=== PATIENT | male | born 1995 | race Caucasian/White ===

== ENCOUNTER → 2016-05-17 | Outpatient (CLI) | payer BC ==
[2016-05-17 17:33] LABS: BASO % 0.3 %; BASO ABS # 0.02 K/uL (0-0.2); COMPLETE YES; EOS % 1.7 %; HEMATOCRIT 37.6 % (42-52); IG% 0.2 %; LYMPH % 27.9 %; LYMPH ABS # 1.77 K/uL (1.2-3.4); MEAN CELL VOLUME 80.5 fL (80-100); MEAN CORPUSCULAR HEMOGLOBIN 27.2 pg (25-34); MEAN CORPUSCULAR HGB CONC 33.8 g/dl (32-36); MEAN PLATELET VOLUME 9.7 fL (7.4-10.4); MONO % 13.7 %; NEUT % 56.2 %; PLATELET COUNT 255 K/uL (130-400); RED BLOOD COUNT 4.67 M/uL (4.7-6.1); WHITE BLOOD COUNT 6.35 K/uL (4.8-10.8)
[2016-05-17 17:48] LABS: ALT/SGPT 17 U/L (12-78); BLOOD UREA NITROGEN 10 mg/dl (7-18); BUN/CREATININE RATIO 11.4 (10-20); CALCIUM 8.9 mg/dl (8.5-10.1); CARBON DIOXIDE 26 mmol/L (21-32); CHLORIDE 103 mmol/L (98-107); CREATININE 0.83 mg/dl (0.60-1.40); GLUCOSE 87 mg/dl (70-99); POTASSIUM 3.8 mmol/L (3.5-5.1); SODIUM 138 mmol/L (136-145)
[2016-05-17 17:51] LABS: ALB/GLOB RATIO 0.9 (0.9-2); ALKALINE PHOSPHATASE 72 U/L (45-117); AST/SGOT 15 U/L (15-37); C-REACTIVE PROTEIN 1.31 mg/dl (0-0.29)
[2016-05-19 10:20] LABS: QUANTIF TB AG-NIL 0.01 IU/ML; QUANTIFERON NIL 0.05 IU/ML
== END | disposition home or self-care (01) ==
LOC: C.LAB1850 16:05
PROVIDERS: ATTEND Registered Nurse
DX: Z00.00 Encounter for general adult medical examination without abnormal findings (principal); K50.90 Crohn's disease, unspecified, without complications

== ENCOUNTER → 2017-06-27 | Outpatient (CLI) | payer OTHER ==
[2017-06-27 12:18] LABS: BASO % 0.6 %; BASO ABS # 0.03 K/uL (0-0.2); EOS % 2.7 %; EOS ABS # 0.13 K/uL (0-0.5); HEMATOCRIT 41.2 % (42-52); HEMOGLOBIN 14.1 g/dL (14.0-18.0); IG# 0.01 K/uL (0.00-0.02); LYMPH % 32.9 %; MEAN CELL VOLUME 77.9 fL (80-100); MEAN CORPUSCULAR HEMOGLOBIN 26.7 pg (25-34); MEAN CORPUSCULAR HGB CONC 34.2 g/dl (32-36); MEAN PLATELET VOLUME 9.1 fL (7.4-10.4); MONO % 11.9 %; MONO ABS # 0.58 K/uL (0.11-0.59); NEUT % 51.7 %; NEUT ABS # 2.52 K/uL (1.4-6.5); PLATELET COUNT 231 K/uL (130-400); RED CELL DISTRIBUTION WIDTH CV 14.4 % (11.5-14.5); RED CELL DISTRIBUTION WIDTH SD 40.6 fL (36.4-46.3); WHITE BLOOD COUNT 4.87 K/uL (4.8-10.8)
[2017-06-27 12:58] LABS: ALKALINE PHOSPHATASE 76 U/L (45-117); ALT/SGPT 18 U/L (12-78); AST/SGOT 15 U/L (15-37); BLOOD UREA NITROGEN 13 mg/dl (7-18); CALCIUM 9.2 mg/dl (8.5-10.1); CARBON DIOXIDE 28 mmol/L (21-32); CREATININE 0.85 mg/dl (0.60-1.40); GLUCOSE 87 mg/dl (70-99); POTASSIUM 3.6 mmol/L (3.5-5.1); SODIUM 136 mmol/L (136-145); TOTAL PROTEIN 8.4 gm/dl (6.4-8.2)
[2017-06-29 11:55] LABS: QUANTIF MITOGEN-NIL 8.92 IU/ML; QUANTIFERON NEGATIVE (NEGATIVE); QUANTIFERON NIL 0.04 IU/ML
== END | disposition home or self-care (01) ==
LOC: C.LAB1850 10:46
PROVIDERS: ATTEND Registered Nurse
DX: K50.10 Crohn's disease of large intestine without complications (principal); K62.5 Hemorrhage of anus and rectum

== ENCOUNTER 2017-08-03 10:44 | Emergency (ER) | payer OTHER ==
[~2017-08-03] VITALS: Ht 170.2 cm; Wt 70.8 kg
[2017-08-03 10:54] VITALS: TEMP 36.9; O2SAT 94; Ht 170.2 cm; Wt 70.8 kg
[2017-08-03] MEDS ORDERED: SODIUM CHLORIDE 0.9% 1000ML 1,000 ML IV STA (11:23)
[2017-08-03 11:49] LABS: BASO % 0.4 %; BASO ABS # 0.02 K/uL (0-0.2); EOS % 2.3 %; EOS ABS # 0.11 K/uL (0-0.5); IG# 0.01 K/uL (0.00-0.02); LYMPH % 31.8 %; LYMPH ABS # 1.49 K/uL (1.2-3.4); MEAN CELL VOLUME 78.8 fL (80-100); MEAN CORPUSCULAR HEMOGLOBIN 26.9 pg (25-34); MEAN CORPUSCULAR HGB CONC 34.1 g/dl (32-36); MEAN PLATELET VOLUME 9.1 fL (7.4-10.4); MONO ABS # 0.47 K/uL (0.11-0.59); NEUT % 55.3 %; NEUT ABS # 2.59 K/uL (1.4-6.5); PLATELET COUNT 213 K/uL (130-400); RED CELL DISTRIBUTION WIDTH CV 14.3 % (11.5-14.5); WHITE BLOOD COUNT 4.69 K/uL (4.8-10.8)
[2017-08-03 12:05] LABS: ALBUMIN 3.6 gm/dl (3.4-5.0); CALCIUM 9.2 mg/dl (8.5-10.1); CREATININE 0.81 mg/dl (0.60-1.40); POTASSIUM 3.7 mmol/L (3.5-5.1)
[2017-08-03 12:08] LABS: TOTAL PROTEIN 7.8 gm/dl (6.4-8.2)
[2017-08-03 12:15] VITALS: BP 110/78; PULSE 68
--- NOTE | 2017-08-03 12:21 | EMERGENCY ROOM VISIT NOTE ---
History Report prepared by Benja: Ofelia Portillo Under the Supervision of: Dr. Rinku Parekh D.O. First contact with patient: 11:15 Chief Complaint: VOMITING Stated Complaint: VOMITING BLOOD, FATIGUE Nursing Triage Summary: Pt states, "I was supposed to have a colonoscopy today. I took the second prep today at 6 am and vomited what looked to be blood afterwards." Hx of Crohn's. History of Present Illness The patient is a 22 year old male who presents to the Emergency Room with complaints of an episode of vomiting occurring this morning. The patient was scheduled to have a routine colonoscopy today at 11am. He reports after taking the second prep this morning at 6 am he vomited about 30 minutes after what looked like to be blood. He has not vomited again since the first episode. He reports some diarrhea from the prep. He denies any nausea. The patient called his GI physician who referred him to the ED. The patient has a history of Crohn' s. Source of History: patient Onset: this morning Position: other (generalized) Quality: other (vomiting) Timing: other (episode) Associated Symptoms: + vomiting, + diarrhea, No nausea Review of Systems See HPI for pertinent positives & negatives. A total of 10 systems reviewed and were otherwise negative. Past Medical & Surgical Medical Problems: (1) Crohn disease Family History Patient reports no known family medical history. Social History Smoking Status: Never Smoker Smokeless Tobacco Use: No Alcohol Use: other (daily) Housing Status: lives with family Current/Historical Medications Scheduled Infliximab (Remicade), 1 DOSE IV Q8 WEEKS Allergies Coded Allergies: Adhesives (Verified Allergy, Unknown, LISTED AN ADVERSE REACTION IN MEDICAL RECORD, 07/20/17) NO KNOWN DRUG ALLERGIES (Verified Allergy, Unknown, ., 07/20/17) Uncoded Allergies: SEASONAL ALLERGIES (Allergy, Unknown, ., 07/20/17) Physical Exam Vital Signs Date Time Temp Pulse Resp B/P (MAP) Pulse Ox O2 Delivery O2 Flow Rate FiO2 08/03/17 12:15 68 16 110/78 08/03/17 10:54 36.9 92 18 150/80 94 Room Air Physical Exam CONSTITUTIONAL/VITAL SIGNS: Reviewed / noted above. GENERAL: Non-toxic in appearance. INTEGUMENTARY: Warm, dry, and [place]. HEAD: Normocephalic. EYES: without scleral icterus or trauma. ENT/OROPHARYNX: clear and moist. LYMPHADENOPATHY/NECK: Is supple without lymphadenopathy or meningismus. RESPIRATORY: Lungs clear and equal. CARDIOVASCULAR: Regular rate and rhythm. GI/ABDOMEN: Soft and nontender. No organomegaly or pulsatile mass. No rebound or guarding. Normal bowel sounds. EXTREMITIES: Warm and well perfused. BACK: No CVA tenderness. NEUROLOGICAL: Intact without focal deficits. PSYCHIATRIC: normal affect. MUSCULOSKELETAL: Normally developed with good muscle tone. Medical Decision & Procedures Laboratory Results 08/03/17 11:35 Red Blood Count 5.20, Mean Corpuscular Volume 78.8, Mean Corpuscular Hemoglobin 26.9, Mean Corpuscular Hemoglobin Concent 34.1, Mean Platelet Volume 9.1, Neutrophils (%) (Auto) 55.3, Lymphocytes (%) (Auto) 31.8, Monocytes (%) (Auto) 10.0, Eosinophils (%) (Auto) 2.3, Basophils (%) (Auto) 0.4, Neutrophils # (Auto ) 2.59, Lymphocytes # (Auto) 1.49, Monocytes # (Auto) 0.47, Eosinophils # (Auto ) 0.11, Basophils # (Auto) 0.02 08/03/17 11:35 Test 08/03/17 11:35 White Blood Count 4.69 K/uL (4.8-10.8) Red Blood Count 5.20 M/uL (4.7-6.1) Hemoglobin 14.0 g/dL (14.0-18.0) Hematocrit 41.0 % (42-52) Mean Corpuscular Volume 78.8 fL (80-100) Mean Corpuscular Hemoglobin 26.9 pg (25-34) Mean Corpuscular Hemoglobin Concent 34.1 g/dl (32-36) Platelet Count 213 K/uL (130-400) Mean Platelet Volume 9.1 fL (7.4-10.4) Neutrophils (%) (Auto) 55.3 % Lymphocytes (%) (Auto) 31.8 % Monocytes (%) (Auto) 10.0 % Eosinophils (%) (Auto) 2.3 % Basophils (%) (Auto) 0.4 % Neutrophils # (Auto) 2.59 K/uL (1.4-6.5) Lymphocytes # (Auto) 1.49 K/uL (1.2-3.4) Monocytes # (Auto) 0.47 K/uL (0.11-0.59) Eosinophils # (Auto) 0.11 K/uL (0-0.5) Basophils # (Auto) 0.02 K/uL (0-0.2) RDW Standard Deviation 41.0 fL (36.4-46.3) RDW Coefficient of Variation 14.3 % (11.5-14.5) Immature Granulocyte % (Auto) 0.2 % Immature Granulocyte # (Auto) 0.01 K/uL (0.00-0.02) Anion Gap 4.0 mmol/L (3-11) Est Creatinine Clear Calc Drug Dose 134.9 ml/min Estimated GFR () 147.2 Estimated GFR (Non- 127.0 BUN/Creatinine Ratio 10.5 (10-20) Calcium Level 9.2 mg/dl (8.5-10.1) Total Bilirubin 0.6 mg/dl (0.2-1) Direct Bilirubin 0.2 mg/dl (0-0.2) Aspartate Amino Transf (AST/SGOT) 12 U/L (15-37) Alanine Aminotransferase (ALT/SGPT) 15 U/L (12-78) Alkaline Phosphatase 82 U/L (45-117) Total Protein 7.8 gm/dl (6.4-8.2) Albumin 3.6 gm/dl (3.4-5.0) Lipase 72 U/L (73-393) Laboratory results as stated above per my review. Medications Administered Medications (Trade) Dose Ordered Sig/Barbara Route Start Time Stop Time Status Last Admin Dose Admin Sodium Chloride 1,000 ml @ 999 mls/hr Q1H1M STAT IV 08/03/17 11:23 08/03/17 12:23 DC 08/03/17 11:35 999 MLS/HR ED Course 1120: Previous medical records were reviewed. The patient was evaluated in room A3. A complete history and physical examination was performed. 1123: Ordered Sodium Chloride 1000 ml @ 999 mls/hr IV. 1223: On reevaluation, the patient is resting comfortably. I discussed the results and findings with the patient. He verbalized agreement of the treatment plan. He was discharged home. Medical Decision Differential diagnosis: Etiologies such as gastroenteritis, food borne illness, infections, appendicitis , diverticulitis, inflammatory bowel disease, obstruction, GI bleed, biliary pathology, as well as others were entertained. This is a 22-year-old male who presents to the ED with a chief complaint of vomiting. The patient reports that he was scheduled to have a colonoscopy today at 11 AM. He states that on the second prep this morning, he developed vomiting and thought he might have vomited up some blood. It occurred around 6 AM. He has not had any symptoms since. When he contacted the GI office, they told him to come here. The patient has no other complaints at this time. He does report some diarrhea related to the prep but otherwise has not had any additional vomiting. His physical exam was normal his vital signs are normal. A CBC and complete metabolic panel and lipase are normal. He was told the results. He is felt to be stable for discharge. He was treated with normal saline IV. He did not require nausea medicine as though symptoms have resolved. Medication Reconcilliation Current Medication List: was personally reviewed by me Blood Pressure Screening Patient's blood pressure: Normal blood pressure Impression Primary Impression: Vomiting Scribe Attestation The scribe's documentation has been prepared under my direction and personally reviewed by me in its entirety. I confirm that the note above accurately reflects all work, treatment, procedures, and medical decision making performed by me. Departure Information Dispostion Home / Self-Care Referrals No Doctor, Assigned (PCP) Forms HOME CARE DOCUMENTATION FORM, IMPORTANT VISIT INFORMATION Patient Instructions My [facility] Additional Instructions Follow-up with your doctor for further care and evaluation in 1-2 days. Return to the emergency department for worsening or new symptoms or any concerns. You have been examined and treated today on an emergency basis only. This is not a substitute for, or an effort to provide, complete comprehensive medical care. It is impossible to recognize and treat all injuries or illnesses in a single emergency department visit. It is therefore important that you follow up closely with your doctor. Call as soon as possible for an appointment.
[2017-08-03] MEDS ORDERED: RMCI IV (13:13)
== END 2017-08-03 12:35 | disposition home or self-care (01) ==
LOC: C.EDB 10:45 → C.EDA 12:35
DX: R11.10 Vomiting, unspecified (principal); K50.90 Crohn's disease, unspecified, without complications; Z79.899 Other long term (current) drug therapy; Z91.048 Other nonmedicinal substance allergy status